=== PATIENT | male | born 1985 | race African-American/Black ===

== ENCOUNTER 2018-07-25 10:48 | Day surgery (SDC) | payer OTHER ==
[~2018-07-25] VITALS: Ht 177.8 cm; Wt 130.0 kg
[2018-07-25] VITALS (8 sets, daily range): BP systolic 117–150; BP diastolic 71–94; PULSE 64–88; TEMP 98–98.7
[2018-07-25 11:35] LABS: HEMATOCRIT 43.9 % (42.0-52.0); MEAN CELL VOLUME 85 fl (80.0-100.0); MEAN CORPUSCULAR HEMOGLOBIN 29 pg (27.0-31.0); MEAN CORPUSCULAR HGB CONC 34 g/dl (33.0-37.0); MEAN PLATELET VOLUME 9.6 fl (7.4-10.4); PLATELET COUNT 226 K/mm3 (130-400); RED BLOOD COUNT 5.19 M/mm3 (4.20-5.60)
[2018-07-25] MEDS ORDERED: ASPIRIN E.C. 8181 MG PO (11:36)
[2018-07-25] MEDS ORDERED: LIPITOR 10MG10 MG PO (11:37)
[2018-07-25] MEDS ORDERED: EXFORGE 10 MG-31 TAB PO (11:39)
[2018-07-25 11:41] LABS: PROTHROMBIN TIME 11.9 SECONDS (9.7-12.8)
[2018-07-25 11:48] LABS: CALCIUM 9.8 mg/dL (8.4-10.2); CHOLESTEROL RISK RATIO 5.7; CREATININE, serum 0.96 mg/dL (0.66-1.25); MAGNESIUM 1.9 mg/dL (1.6-2.3); POTASSIUM 4.5 mmol/L (3.4-5.0)
== END 2018-07-25 16:15 | disposition home or self-care (01) ==
LOC: COL.CAR 10:48
PROVIDERS: Internal Medicine Cardiovascular Disease
DX: R07.89 Other chest pain (principal); I10 Essential (primary) hypertension; E78.5 Hyperlipidemia, unspecified; I20.9 Angina pectoris, unspecified; E66.01 Morbid (severe) obesity due to excess calories; Z68.41 Body mass index [BMI] 40.0-44.9, adult; Z79.82 Long term (current) use of aspirin; Z82.49 Family history of ischemic heart disease and other diseases of the circulatory system; Z87.891 Personal history of nicotine dependence
CPT/HCPCS: J1200; J1644; J2250; J3010; Q9967